=== PATIENT | female | born 1955 | race Caucasian/White ===

== ENCOUNTER 2017-10-17 02:01 | Inpatient (IN) | payer OTHER, MEDICARE ==
[~2017-10-17] VITALS: Ht 170.2 cm; Wt 58.1 kg
[~2017-10-17 02:01] MED LIST: CARI1TAB34; FOSA70TA PO; HYDR-3580 PO; LISI-360 PO; PRAV40TA2 PO
[2017-10-17 02:16] VITALS: BP 143/88; PULSE 88; RESP 20; TEMP 98; O2SAT 98
[2017-10-17] MEDS ORDERED: PRAV40TA2 PO (02:16)
[2017-10-17] MEDS ORDERED: LISI10TA3 PO (02:16)
[2017-10-17] MEDS ORDERED: HALOPERIDOL LACTATE 5 MG/ML AMP IM ONE (03:45)
[2017-10-17] MEDS ORDERED: LORazepam 2 MG/ML VIAL IV PUSH ONE (03:45)
--- NOTE | 2017-10-17 03:53 | PD ---
HPI Chief Complaint: Psychiatric Symptoms Time Seen by Provider: 03:23 Travel History International Travel<30 days: No Contact w/Intl Traveler<30days: No Traveled to known affect area: No History of Present Illness HPI 62-year-old white female presents to emergency department on a voluntary basis for psychological evaluation. The patient is acting very erratic. She is psychotic. She is asking the staff to euthanize her. She is becoming increasingly agitated in the examination room. She is throwing supplies off the cart onto the ground. She is attempting to pull the monitor off the wall. At this point the patient is restrained and she is medicated with Haldol 5 mg IV and 1 mg of Ativan IV. The patient is unable to give any meaningful history. [facility] Past Medical History Narrative Medical Medical record indicates hypertension and hypercholesterolemia High Cholesterol: Yes Hypertension: Yes Immunizations Current: Yes Tetanus Vaccination: Unknown Influenza Vaccination: No ?: Not Past Surgical History Narrative Surgical Lumbar laminectomy, Lumbar arthrodesis Social History Alcohol Use: No Tobacco Use: No Substance Use: No Allergies-Medications (Allergen,Severity, Reaction): Coded Allergies: No Known Allergies (Unverified Adverse Reaction, Unknown, 10/17/17) Reported Meds & Prescriptions Reported Meds & Active Scripts Active Reported Pravastatin 40 Mg Tab 40 Mg PO DAILY Lisinopril 10 Mg Tab 10 Mg PO DAILY Review of Systems ROS Limitations: Psychotic Physical Exam Narrative GENERAL: Well-nourished, well-developed patient. The patient is acutely psychotic. She is not making sense at this time. She is uncooperative. SKIN: Warm and dry. HEAD: Normocephalic and atraumatic. EYES: No scleral icterus. No injection or drainage. ENT: No nasal drainage noted. Mucous membranes pink. Airway patent. NECK: Supple, trachea midline. Moves head freely without obvious discomfort. CARDIOVASCULAR: Regular rate and rhythm without murmurs, gallops, or rubs. RESPIRATORY: Breath sounds equal bilaterally. No accessory muscle use. GASTROINTESTINAL: Abdomen soft, non-tender, nondistended. EXTREMITIES: No cyanosis or edema. BACK: Nontender without obvious deformity. No CVA tenderness. NEURO: Patient is alert to person. no sensorimotor deficits. Patient is moving all extremities in a coordinated fashion. PSYCH: Acutely psychotic Data Data Last Documented VS Vital Signs Date Time Temp Pulse Resp B/P (MAP) Pulse Ox O2 Delivery O2 Flow Rate FiO2 10/17/17 02:16 98.0 88 20 143/88 (106) 98 Orders Orders Complete Blood Count With Diff (10/17/17 03:32) Comprehensive Metabolic Panel (10/17/17 03:32) Iv Access Insert/Monitor (10/17/17 03:32) Psych Screen (10/17/17 03:32) Haloperidol Inj (Haldol Inj) (10/17/17 03:45) Lorazepam Inj (Ativan Inj) (10/17/17 03:45) Drug Screen, Random Urine (10/17/17 03:32) Alcohol (Ethanol) (10/17/17 03:32) MDM Medical Decision Making Medical Screen Exam Complete: Yes Emergency Medical Condition: Yes Medical Record Reviewed: Yes Differential Diagnosis MDM: High Differential diagnoses: Schizophrenia, schizoaffective disorder, bipolar, anxiety, depression, adjustment reaction, mood disorder NOS, ODD, depressive disorder NOS, dementia, dementia with agitation, psychosis NOS, substance induced mood disorder, DMDD, Asperger syndrome, infection,electrolyte abnormality, malingering. Narrative Course Mental health screening discussed with the patient. Psychiatric screen ordered. The patient is acutely psychotic. She has physically restrained in order to be medicated. She has become physically combative with staff. She has attempted to withdrawal securities baton from his duty belt. She has thrown the supplies off the supply cart. She is also attempted to pull the monitor off the wall. IV access is obtained. Laboratory tests have been drawn. She is given Haldol 5 mg IV and 1 mg of Ativan IV. Her IV is removed. The patient is medically cleared. This is medical clearance for psychiatric admission Diagnosis Primary Impression: Medical clearance for psychiatric admission Condition: Arron Patino Oct 17, 2017 03:53
[2017-10-17 03:56] VITALS: BP 116/66; PULSE 64; RESP 18; TEMP 97.3; O2SAT 99
[2017-10-17 03:58] LABS: AUTOMATED NEUTROPHIL # 5.2 TH/MM3 (1.8-7.7); BASOPHIL # 0.1 TH/MM3 (0-0.2); BASOPHIL % 0.7 % (0.0-2.0); EOSINOPHIL % 0.3 % (0.0-4.0); HEMATOCRIT 41.2 % (35.0-46.0); HEMO FLAGS DIFF FINAL; LYMPH % 21.1 % (9.0-44.0); LYMPHOCYTE # 1.6 TH/MM3 (1.0-4.8); MEAN CELL VOLUME 95.8 FL (80.0-100.0); MEAN CORPUSCULAR HEMOGLOBIN 34.1 PG (27.0-34.0); MEAN CORPUSCULAR HGB CONC 35.6 % (32.0-36.0); MONO % 11.4 % (0.0-8.0); NEUT % 66.5 % (16.0-70.0); PLATELET COUNT 241 TH/MM3 (150-450); WHITE BLOOD COUNT 7.8 TH/MM3 (4.0-11.0)
[2017-10-17 04:21] LABS: ALT (GPT) 18 U/L (10-53); ANION GAP 9 MEQ/L (5-15); AST (GOT) 33 U/L (15-37); BICARBONATE 25.2 MEQ/L (21.0-32.0); BLOOD UREA NITROGEN 5 MG/DL (7-18); CHLORIDE 94 MEQ/L (98-107); GLOMERULAR FILTRATION RATE 100 ML/MIN (>89); SODIUM (NA) 128 MEQ/L (136-145)
[2017-10-17 04:23] LABS: ALKALINE PHOSPHATASE 71 U/L (45-117); TOTAL BILIRUBIN ADULT 0.6 MG/DL (0.2-1.0)
[2017-10-17 04:35] LABS: ALCOHOL LESS THAN 3 MG/DL (0-5)
[2017-10-17 06:19] VITALS: BP 111/77; PULSE 104; RESP 18; O2SAT 98
[2017-10-17] MEDS ORDERED: POTASSIUM CHLORIDE 20 MEQ CONTROLLED RELEASE TAB PO ONE (09:00)
[2017-10-17 14:19] VITALS: BP 131/76; PULSE 84; RESP 18; TEMP 98.3; O2SAT 96
[2017-10-17] MEDS ORDERED: LORazepam 2 MG/ML VIAL IM PRN (17:00)
[2017-10-17] MEDS ORDERED: diphenhydrAMINE HCL 50 MG/ML VIAL IM PRN (17:00)
[2017-10-17] MEDS ORDERED: MAGNESIUM HYDROXIDE SUSP 30 ML CUP PO PRN (17:00)
[2017-10-17] MEDS ORDERED: ALUMINUM/MAGNESIUM/SIMETH 30 ML CUP PO PRN (17:00)
[2017-10-17] MEDS ORDERED: diphenhydrAMINE HCL 50 MG CAP PO PRN (17:00)
--- NOTE | 2017-10-17 17:03 | HHI.HP ---
Provisional Diagnosis Admission Date [place] I. Brief psychotic disorder Certification of Person's Competence To Provide Express and Informed Consent I have personally examined Alma Dominguez , a person being served at [facility] on, Oct 17, 2017 16:51. Express and informed consent means consent voluntarily given in writing, by a competent person, after sufficient explanation and disclosure of the subject matter involved to enable the person to make a knowing and willful decision without any element of force, fraud, deceit, duress, or other form of constraint or coercion. This person is 18 years of age or older, is not now known to be incompetent to consent to treatment with a guardian advocate, and does not have a health care surrogate or proxy currently making medical treatment decisions. I have found this person to be one of the following: [] Competent to provide express and informed consent, as defined above, for voluntary admission to this facility and is competent to provide express and informed consent for treatment. He/she has the consistent capacity to make well reasoned, willful, and knowing decisions concerning his or her medical or mental health treatment. The person fully and consistently understands the purpose of the admission for examination/placement and is fully capable of personally exercising all rights [place] [x] Incompetent to provide express and informed consent to voluntary admission, and this is incompetent to provide express and informed consent to treatment. The person must be transferred to involuntary status and a petition for a guardian advocate filed with the Circuit Court. [] Refusing to provide express and informed consent to voluntary admission but is competent to provide express and informed consent for treatment. The person must be discharged or transferred to involuntary status. Form shall be completed within 24 hours of a person's arrival at the receiving facility and filed in the clinical record of each person: 1. Admitted on a voluntary basis 2. Permitted to provide express and informed consent to his/her own treatment 3. Allowed to transfer from involuntary to voluntary status 4. Prior to permitting a person to consent to his or her own treatment after having been previously found incompetent to consent to treatment. History of Present Illness Capacity: Lacks Capacity HPI 62-year-old female that initially presented voluntarily to the emergency department for erratic behavior. Apparently she became very agitated, was throwing supplies in the examination room onto the ground. She attempted to pull a monitor off the wall. She required both physical and chemical restraint but fought with staff and in the process reportedly lost a tooth. She was noted to be grossly psychotic and unable to provide meaningful history. According to reports from the nurse, Joey, who spoke with the patient's , this is a recent drastic change in her behavior occurring over the last 5 days. In the main ED, she asked the hospital staff to euthanize her. As a result of her combativeness, she has required Haldol. She attempted to remove the security guards that time from his duty belt. This medicine has calmed the patient somewhat, in conjunction with Ativan. However, the patient remains grossly psychotic. She reportedly hallucinated in the emergency department that she had seen "the biggest truck I ever seen, they came with thousands of officers". She also thought she was being taken by the [facility] and that everyone was missing teeth and "all tattooed" she did not believe she was at [facility] and claimed that she could not trust anyone. She apparently told both the nurse Joey and this physician that Skye Tripathi was her daughter, given up many years ago. According to the patient's , Andrew Allred, , the patient has become increasingly bizarre, delusional, crying uncontrollably, talking to herself, etc. over the last 6 days. Law enforcement has been called to their home on multiple occasions. He does not know what is happening with his and he states she has no psychiatric treatment history. Review of Systems ROS Limitations: Clinical Condition Psychiatric: COMPLAINS OF: Confusion Except as stated in HPI: all other systems reviewed are Neg Past Psych History Psychological trauma history Denied Violence risk - others (6 mos) High Violence risk - self (6 mos) High Substance Abuse History Drugs/Alcohol past 12 months Toxicology screen is positive for cannabinoids. Patient has mentioned stimulants (Adderall) as something associated with her daughter. However, patient may have been given drugs in the marijuana or gotten into other drugs. Past Family Social History Coded Allergies: No Known Allergies (Unverified Adverse Reaction, Unknown, 10/17/17) Reported Medications Pravastatin (Pravastatin) 40 Mg Tab, 40 MG PO DAILY for Cholesterol Management, #30 TAB 0 Refills 10/17/17 Lisinopril (Lisinopril) 10 Mg Tab, 10 MG PO DAILY, #30 TAB 0 Refills 10/17/17 Discontinued Reported Medications Hydrocodone/Acetaminophen 7.5 mg/325 mg (Hydrocodone/Acetaminophen 7.5 mg/325 mg ) 7.5 Mg/325 Mg Tab, 1 TAB PO Q8 Y for PAIN SCALE 4 TO 7, TAB 03/18/14 Lisinopril 10 mg (Lisinopril 10 mg) 10 Mg Tab, 10 MG PO DAILY, TAB 03/18/14 Carisoprodol (Soma 350 Mg Tab) 350 Mg Tab, 350 MG .XX, TAB 03/18/14 Pravastatin Sodium (Pravastatin Sodium) 40 Mg Tab, 40 MG PO DAILY, TAB 03/18/14 Alendronate Sodium (Fosamax) 70 Mg Tab, 70 MG PO Q7D, TAB TAKE 30 MINUTES BEFORE THE MORNING MEAL, ONLY WATER 03/18/14 Current Medications Medications (Trade) Dose Ordered Sig/Roxanne Route Start Time Stop Time Status Last Admin (Ativan) 1 mg Q6H PRN PO 10/17/17 17:00 UNV (Ativan Inj) 1 mg Q6H PRN IM 10/17/17 17:00 UNV (Benadryl) 50 mg Q6H PRN PO 10/17/17 17:00 UNV (Benadryl Inj) 50 mg Q6H PRN IM 10/17/17 17:00 UNV (Tylenol) 650 mg Q4H PRN PO 10/17/17 17:00 UNV (Milk Of Magnesia Liq) 30 ml DAILY PRN PO 10/17/17 17:00 UNV (Mag-Al Plus Susp Liq) 30 ml Q6H PRN PO 10/17/17 17:00 UNV (Prinivil) 10 mg DAILY PO 10/17/17 17:00 UNV (Pravachol) 40 mg DAILY PO 10/18/17 09:00 UNV Family Psych History Unknown. Patient poor historian. Social History Patient is obviously . has been contacted and given information due to the emergency nature of the 's presentation. As stated, toxicology screen is positive for cannabinoids. Patient is not able to give any other cogent history at this time. Patient's Strengths (min. 2) Patient has supportive and access to healthcare. Physical Exam GENERAL: SKIN: Warm and dry. HEAD: Normocephalic. EYES: No scleral icterus. No injection or drainage. NECK: Supple, trachea midline. No JVD or lymphadenopathy. CARDIOVASCULAR: Regular rate and rhythm without murmurs, gallops, or rubs. RESPIRATORY: Breath sounds equal bilaterally. No accessory muscle use. GASTROINTESTINAL: Abdomen soft, non-tender, nondistended. MUSCULOSKELETAL: No cyanosis, or edema. BACK: Nontender without obvious deformity. No CVA tenderness. Vital Signs Vital Signs Date Time Temp Pulse Resp B/P (MAP) Pulse Ox O2 Delivery O2 Flow Rate FiO2 10/17/17 14:19 98.3 84 18 131/76 (94) 96 Room Air Lab Results Test 10/17/17 03:44 10/17/17 07:30 White Blood Count 7.8 TH/MM3 Red Blood Count 4.30 MIL/MM3 Hemoglobin 14.6 GM/DL Hematocrit 41.2 % Mean Corpuscular Volume 95.8 FL Mean Corpuscular Hemoglobin 34.1 PG Mean Corpuscular Hemoglobin Concent 35.6 % Red Cell Distribution Width 14.0 % Platelet Count 241 TH/MM3 Mean Platelet Volume 9.2 FL Neutrophils (%) (Auto) 66.5 % Lymphocytes (%) (Auto) 21.1 % Monocytes (%) (Auto) 11.4 % Eosinophils (%) (Auto) 0.3 % Basophils (%) (Auto) 0.7 % Neutrophils # (Auto) 5.2 TH/MM3 Lymphocytes # (Auto) 1.6 TH/MM3 Monocytes # (Auto) 0.9 TH/MM3 Eosinophils # (Auto) 0.0 TH/MM3 Basophils # (Auto) 0.1 TH/MM3 CBC Comment DIFF FINAL Differential Comment Blood Urea Nitrogen 5 MG/DL Creatinine 0.61 MG/DL Random Glucose 115 MG/DL Total Protein 8.2 GM/DL Albumin 4.5 GM/DL Calcium Level 9.2 MG/DL Alkaline Phosphatase 71 U/L Aspartate Amino Transf (AST/SGOT) 33 U/L Alanine Aminotransferase (ALT/SGPT) 18 U/L Total Bilirubin 0.6 MG/DL Sodium Level 128 MEQ/L Potassium Level 3.0 MEQ/L Chloride Level 94 MEQ/L Carbon Dioxide Level 25.2 MEQ/L Anion Gap 9 MEQ/L Estimat Glomerular Filtration Rate 100 ML/MIN Ethyl Alcohol Level LESS THAN 3 MG/DL Urine Opiates Screen NEG Urine Barbiturates Screen NEG Urine Amphetamines Screen NEG Urine Benzodiazepines Screen NEG Urine Cocaine Screen NEG Urine Cannabinoids Screen POS Mental Status Examination Appearance: Appropriate, Disheveled Consciousness: Alert Motor Activity: Normal gait Speech: Rapid Language: Perseveration Fund of Knowledge: Inadequate Attention and Concentration: Inadequate Memory: Impaired Mood: Anxious, Irritable Affect: Irritable, Labile Thought Process & Associations: Loose associations, Disorganized, Tangential Thought Content: Bizarre thinking, Hallucinations, Racing thoughts, Delusional Hallucination Type: Auditory, Visual Delusion Type: Bizarre, Paranoid Suicidal Ideation: Yes Suicidal Plan: No Suicidal Intention: No Homicidal Ideation: No Homicidal Plan: No Homicidal Intention: No Insight: Poor Judgment: Poor Assessment & Plan Problem List: (1) Brief psychotic disorder ICD Codes: F23 - Brief psychotic disorder Assessment & Plan Estimated LOS: days. 62-year-old female with no psychiatric history, Reese acted by this physician for inability to care for herself, suicidal ideation, physically combative behavior with staff, markedly psychotic with impaired judgment and poor insight. She is obviously unable to care for herself, dangerous to herself and others and requires hospitalization. This physician has ordered a CBC and comprehensive metabolic panel to determine if any infectious process or metabolic process might be causing or contributing to her psychosis and confusion. Additionally, this physician ordered thyroid stimulating hormone level, vitamin B-12 level and vitamin D level to determine if any deficiencies in these areas is causing or contributing to her psychosis. Patient takes an antihypertensive medication and hepatitis was consult did to evaluate the patient for any organic process which might be causing or contributing to this new onset psychosis and confusion. This physician also ordered an EKG to determine the patient's cardiac conduction status, as psychotropic medicines might adversely affect the electrical system of her heart. This physician spoke with the patient's nurse, Joey, about her recent behavior. Joey also spoke with the patient's regarding her recent history. Finally, case management will be involved to assist with further information gathering and disposition planning. Patient is not felt to be competent to make medical decisions. Aly Peng MD Oct 17, 2017 17:03
[2017-10-17] MEDS: LISINOPRIL 10 MG TAB PO SCH (17:30)
[2017-10-17 19:51] VITALS: BP 133/74; PULSE 66; TEMP 98.1; O2SAT 97
[2017-10-17] MEDS: ACETAMINOPHEN 325 MG TAB PO PRN (20:11)
[2017-10-18] MEDS: ACETAMINOPHEN 325 MG TAB PO PRN (05:27)
[2017-10-18 06:04] VITALS: BP 126/59; PULSE 82; RESP 16; TEMP 98.4; O2SAT 99
[2017-10-18] MEDS: PRAVASTATIN SOD 40 MG TAB PO SCH (08:27)
[2017-10-18] MEDS: LISINOPRIL 10 MG TAB PO SCH (08:28)
[2017-10-18 12:04] LABS: AUTOMATED NEUTROPHIL # 3.4 TH/MM3 (1.8-7.7); BASOPHIL % 0.5 % (0.0-2.0); EOSINOPHIL % 0.5 % (0.0-4.0); HEMATOCRIT 38.3 % (35.0-46.0); HEMO FLAGS DIFF FINAL; LYMPH % 27.8 % (9.0-44.0); LYMPHOCYTE # 1.6 TH/MM3 (1.0-4.8); MEAN CELL VOLUME 96.3 FL (80.0-100.0); MEAN CORPUSCULAR HEMOGLOBIN 32.5 PG (27.0-34.0); MEAN CORPUSCULAR HGB CONC 33.7 % (32.0-36.0); MONO % 14.7 % (0.0-8.0); NEUT % 56.5 % (16.0-70.0); PLATELET COUNT 204 TH/MM3 (150-450); RED BLOOD COUNT 3.98 MIL/MM3 (4.00-5.30); RED CELL DISTRIBUTION WIDTH 13.8 % (11.6-17.2); WHITE BLOOD COUNT 5.9 TH/MM3 (4.0-11.0)
[2017-10-18 12:30] LABS: HEMOGLOBIN A1a 1.4 %; HEMOGLOBIN A1b 0.8 %; HEMOGLOBIN Ao 84.8 %; HEMOGLOBIN F 1.3 %; HEMOGLOBIN LA1C 2.2 %; HEMOGLOBIN P3 3.5 %
[2017-10-18 12:43] LABS: ANION GAP 10 MEQ/L (5-15); AST (GOT) 24 U/L (15-37); BICARBONATE 27.4 MEQ/L (21.0-32.0); BLOOD UREA NITROGEN 4 MG/DL (7-18); CHLORIDE 95 MEQ/L (98-107); GLOMERULAR FILTRATION RATE 93 ML/MIN (>89); POTASSIUM 3.7 MEQ/L (3.5-5.1); SODIUM (NA) 132 MEQ/L (136-145)
[2017-10-18 13:01] LABS: ALKALINE PHOSPHATASE 56 U/L (45-117); ALT (GPT) 15 U/L (10-53); HDL CHOLESTEROL 68.1 MG/DL (40.0-60.0); LDL CHOLESTEROL 27 MG/DL (0-99); TOTAL BILIRUBIN ADULT 0.5 MG/DL (0.2-1.0)
--- NOTE | 2017-10-18 14:00 | PD.CONS ---
HPI Service [facility] Consult Requested By Primary Care Physician Unknown Diagnoses: History of Present Illness history from patient, ER physician notes, and review of medical records. Patient is an extremely pleasant lady at the time of my exam. She is admitted and her psychiatry service. According to psychiatry: Patient was extremely agitated, throwing supplies to the ground, pulling off monitors from the wall, and required physical and chemical restraints. she asked the hospital staff to euthanize her. She was having active hallucinations thinking that [employer] was after her. Patient's also reported to psychiatry staff stat patient was becoming increasingly this year, delusional, and crying uncontrollably, talking to herself over the past 6 days. Patient herself just told me that she was very worried for her sister and her daughter who both had history of IV drug abuse and she was worried that the may end up like her neighbor who just from drug overdose. She stated she started worrying about them when she has not heard from them for a while. She thinks that high brief psychotic episode is because of this. She also told me that her doctor Dr. Landeros had recently started her on baclofen and citalopram. She stated baclofen gave her so much side effects which she described as nausea, vomiting, and blood in stool. She reports it was bright red blood. She stated it started about 4 days ago and it is slowly resolving since she stopped baclofen. She also thinks that citalopram is causing her trouble. Apart from right red blood in her stool, she denies any symptoms. She reports that she has had occult blood tests done for her stool with her PCP about 2 weeks ago and that was normal. She never had colonoscopies. Review of Systems Except as stated in HPI: all other systems reviewed are Neg Past Family Social History Allergies: Coded Allergies: No Known Allergies (Unverified Allergy, Unknown, 10/17/17) Past Medical History Denies any medical conditions apart from: Chronic back pain Osteoporosis on Fosamax Per her medications on computer: Hypertension Hyperlipidemia Past Surgical History Tubal ligation Multiple back surgeries Bilateral wrist surgeries Reported Medications Medications listed on EMR reviewed. Family History Denies any medical conditions that she knows of Social History Currently smokes about half a pack a day. Denies any alcohol abuse or drug abuse. Physical Exam Vital Signs Vital Signs Date Time Temp Pulse Resp B/P (MAP) Pulse Ox O2 Delivery O2 Flow Rate FiO2 10/18/17 06:04 98.4 82 16 126/59 (81) 99 10/17/17 19:51 98.1 66 133/74 (93) 97 10/17/17 19:26 10/17/17 14:19 98.3 84 18 131/76 (94) 96 Room Air Physical Exam GENERAL: This is a well-nourished, well-developed patient, in no apparent distress. SKIN: No rashes, ecchymoses or lesions. Cool and dry.left wrist area romelia ; left antecubital area large echymosis from struggle with police ([facility] police or city police?) HEAD: Atraumatic. Normocephalic. No temporal or scalp tenderness. EYES: No scleral icterus. No injection or drainage. ENT: Nose without bleeding, purulent drainage or septal hematoma. . Airway patent. NECK: Trachea midline. No JVD . Supple, nontender, no meningeal signs. CARDIOVASCULAR: Regular rate and rhythm without murmurs, gallops, or rubs. RESPIRATORY: Clear to auscultation. Breath sounds equal bilaterally. No wheezes , rales, or rhonchi. GASTROINTESTINAL: Abdomen soft, non-tender, nondistended. . No guarding. MUSCULOSKELETAL: Extremities without clubbing, cyanosis, or edema. No calf tenderness. NEUROLOGICAL: Awake and alert. Motor and sensory grossly within normal limits. normal speech. Laboratory Laboratory Tests Test 10/18/17 11:05 White Blood Count 5.9 Red Blood Count 3.98 Hemoglobin 12.9 Hematocrit 38.3 Mean Corpuscular Volume 96.3 Mean Corpuscular Hemoglobin 32.5 Mean Corpuscular Hemoglobin Concent 33.7 Red Cell Distribution Width 13.8 Platelet Count 204 Mean Platelet Volume 9.0 Neutrophils (%) (Auto) 56.5 Lymphocytes (%) (Auto) 27.8 Monocytes (%) (Auto) 14.7 Eosinophils (%) (Auto) 0.5 Basophils (%) (Auto) 0.5 Neutrophils # (Auto) 3.4 Lymphocytes # (Auto) 1.6 Monocytes # (Auto) 0.9 Eosinophils # (Auto) 0.0 Basophils # (Auto) 0.0 CBC Comment DIFF FINAL Differential Comment Blood Urea Nitrogen 4 Creatinine 0.65 Random Glucose 81 Total Protein 6.7 Albumin 3.6 Calcium Level 8.6 Alkaline Phosphatase 56 Aspartate Amino Transf (AST/SGOT) 24 Alanine Aminotransferase (ALT/SGPT) 15 Total Bilirubin 0.5 Sodium Level 132 Potassium Level 3.7 Chloride Level 95 Carbon Dioxide Level 27.4 Anion Gap 10 Estimat Glomerular Filtration Rate 93 Hemoglobin A1c 5.5 Triglycerides Level 91 Cholesterol Level 113 LDL Cholesterol 27 HDL Cholesterol 68.1 Cholesterol/HDL Ratio 1.65 Vitamin B12 Level 253 25-Hydroxy Vitamin D Total 40.8 Thyroid Stimulating Hormone 3rd Gen 2.840 Result Diagram: 10/18/17 1105 10/18/17 1105 Assessment and Plan Assessment and Plan Impression/ Plan: Brief psychotic disorder. Likely related to marijuana which might have been tainted. However question underlying psychiatric disorder since patient reported her PCP had recently started her on citalopram within the past 1 or 2 weeks. Bright red blood per rectum. No prior history of hemorrhoids. Will send stool for occult blood. We'll monitor hemoglobin and hematocrit serially closely. Patient does not want colonoscopy since she stated her occult blood testing as an outpatient about 2 weeks ago was normal. We will follow her clinically and see if she needs inpatient evaluation. If not and stable, she can be referred as an outpatient to have colonoscopy. She is agreeable to this. Osteoporosis Hypertension Hyperlipidemia Nursing orders written to call patient's pharmacy at [phone]. To verify her home meds and update EMR. Patient will need her Fosamax tomorrow. DVT prophylaxis with ambulation. Discussed Condition With patient Hyun Hardy MD Oct 18, 2017 14:00
--- NOTE | 2017-10-18 15:33 | HHI.PYPN ---
Subjective Remarks Patient initially seen by Dr. Aly Peng who did the initial psychiatric evaluation. I have finished the admission psychiatric template. Patient seen by me with nurse cammy, patient alert oriented somewhat intense with mildly pressured speech with intense eye contact. She denies suicidality homicidality voices or visions. She states she's only had one psychiatric contact in that some number of years ago which had some significant medical issues. She acknowledges but minimizes her marijuana use and gets less than once a week and she states she no she has a "28 day" cycle. She states she is had some significant issues with close friend of hers who of been problematic with drug use. The stress of the who is newly diagnosed with Parkinson's. Patient also minimizes her behaviors in the emergency department that necessitated BTO of IV Haldol and Ativan. However at this time patient appears to be somewhat calmer and focused. Though I do feel any further observation to determine the consistency of this recovery. I did ask patient to see if her , and visit with us tomorrow morning. With the possibility of the discharge at that time will refrain from any psychotropics illness or behaviors demands Dr. Lugo first opinion petition supporting [place] act. I agree. Patient meets criteria for further involuntary psychiatric hospitalization under the [place] act thus I'll cosign second opinion petition supporting [place] act Review of Systems Constitutional: DENIES: Diaphoretic episodes, Fatigue, Fever, Weight gain, Weight loss, Chills, Dizziness, Change in appetite, Night Sweats Endocrine: DENIES: Abnorml menstrual pattern, Heat/cold intolerance, Polydipsia , Polyuria, Polyphagia Eyes: DENIES: Blurred vision, Diplopia, Eye inflammation, Eye pain, Vision loss , Photosensitivity, Double Vision Ears, nose, mouth, throat: DENIES: Tinnitus, Hearing loss, Vertigo, Nasal discharge, Oral lesions, Throat pain, Hoarseness, Ear Pain, Running Nose, Epistaxis, Sinus Pain, Toothache, Odynophagia Respiratory: DENIES: Apneas, Cough, Snoring, Wheezing, Hemoptysis, Sputum production, Shortness of breath Cardiovascular: DENIES: Chest pain, Palpitations, Syncope, Dyspnea on Exertion , PND, Lower Extremity Edema, Orthopnea, Claudication Gastrointestinal: DENIES: Abdominal pain, Black stools, Bloody stools, Constipation, Diarrhea, Nausea, Vomiting, Difficulty Swallowing, Anorexia Genitourinary: DENIES: Abnormal vaginal bleeding, Dysmenorrhea, Dyspareunia, Sexual dysfunction, Urinary frequency, Urinary incontinence, Urgency, Hematuria , Dysuria, Nocturia, Vaginal discharge Musculoskeletal: DENIES: Joint pain, Muscle aches, Stiffness, Joint Swelling, Back pain, Neck pain Integumentary: DENIES: Abnormal pigmentation, Pruritus, Rash, Nail changes, Breast masses, Breast skin changes, Nipple discharge Hematologic/lymphatic: DENIES: Bruising, Lymphadenopathy Immunologic/allergic: DENIES: Eczema, Urticaria Neurologic: DENIES: Abnormal gait, Headache, Localized weakness, Paresthesias, Seizures, Speech Problems, Tremor, Poor Balance Psychiatric: COMPLAINS OF: Anxiety (mild), Agitation, Suicidal Ideation (denies ) Mental Status Examination Appearance: Appropriate, Disheveled Consciousness: Alert Orientation: x4 Motor Activity: Normal gait Speech: Rapid Language: Perseveration (mild) Fund of Knowledge: Adequate Attention and Concentration: Inadequate Memory: Impaired Mood: Anxious, Irritable (appears to be decreasing from yesterday) Affect: Other (slight increase range and intensity) Thought Process & Associations: Loose associations (improving), Disorganized, Tangential Thought Content: Bizarre thinking, Hallucinations (denies today), Racing thoughts, Delusional Hallucination Type: Auditory (denies today), Visual (denies today) Delusion Type: Bizarre, Paranoid Suicidal Ideation: Yes (denies today) Suicidal Plan: No Suicidal Intention: No Homicidal Ideation: No Homicidal Plan: No Homicidal Intention: No Insight: Poor Judgment: Poor Results Labs Test 10/18/17 11:05 White Blood Count 5.9 TH/MM3 Red Blood Count 3.98 MIL/MM3 Hemoglobin 12.9 GM/DL Hematocrit 38.3 % Mean Corpuscular Volume 96.3 FL Mean Corpuscular Hemoglobin 32.5 PG Mean Corpuscular Hemoglobin Concent 33.7 % Red Cell Distribution Width 13.8 % Platelet Count 204 TH/MM3 Mean Platelet Volume 9.0 FL Neutrophils (%) (Auto) 56.5 % Lymphocytes (%) (Auto) 27.8 % Monocytes (%) (Auto) 14.7 % Eosinophils (%) (Auto) 0.5 % Basophils (%) (Auto) 0.5 % Neutrophils # (Auto) 3.4 TH/MM3 Lymphocytes # (Auto) 1.6 TH/MM3 Monocytes # (Auto) 0.9 TH/MM3 Eosinophils # (Auto) 0.0 TH/MM3 Basophils # (Auto) 0.0 TH/MM3 CBC Comment DIFF FINAL Differential Comment Blood Urea Nitrogen 4 MG/DL Creatinine 0.65 MG/DL Random Glucose 81 MG/DL Total Protein 6.7 GM/DL Albumin 3.6 GM/DL Calcium Level 8.6 MG/DL Alkaline Phosphatase 56 U/L Aspartate Amino Transf (AST/SGOT) 24 U/L Alanine Aminotransferase (ALT/SGPT) 15 U/L Total Bilirubin 0.5 MG/DL Sodium Level 132 MEQ/L Potassium Level 3.7 MEQ/L Chloride Level 95 MEQ/L Carbon Dioxide Level 27.4 MEQ/L Anion Gap 10 MEQ/L Estimat Glomerular Filtration Rate 93 ML/MIN Hemoglobin A1c 5.5 % Triglycerides Level 91 MG/DL Cholesterol Level 113 MG/DL LDL Cholesterol 27 MG/DL HDL Cholesterol 68.1 MG/DL Cholesterol/HDL Ratio 1.65 RATIO Vitamin B12 Level 253 PG/ML 25-Hydroxy Vitamin D Total 40.8 ng/ML Thyroid Stimulating Hormone 3rd Gen 2.840 uIU/ML Vitals/IOs Vital Signs Date Time Temp Pulse Resp B/P (MAP) Pulse Ox O2 Delivery O2 Flow Rate FiO2 10/18/17 06:04 98.4 82 16 126/59 (81) 99 10/17/17 14:19 Room Air Assessment & Plan Problem List: (1) Brief psychotic disorder ICD Codes: F23 - Brief psychotic disorder Assessment & Plan Estimated LOS: days it appears patient psychosis is somewhat resolving. Need further observation to confirm its consistency. We will also ask her to meet with us tomorrow for a family meeting to consider possible discharge her for the holidays. At this time will refrain from any psychotropics unless her behavior demands Justification for Cont. Inpt. Persistent resolution of her psychosis willingness of her family to have her come home Discharge Planning To be determined Request HC Surrog/Guard Advoc?: No Misha Bledsoe MD Oct 18, 2017 15:33
[2017-10-18 18:30] LABS: HEMATOCRIT 36.8 % (35.0-46.0); REVIEW FLAG FINAL
[2017-10-18 18:52] VITALS: BP 122/70; PULSE 74; RESP 17; TEMP 97.5; O2SAT 99
[2017-10-18] MEDS: LORazepam 1 MG TAB PO PRN (23:01)
[2017-10-19 05:37] LABS: HEMATOCRIT 38.4 % (35.0-46.0); REVIEW FLAG FINAL
[2017-10-19 06:04] VITALS: BP 143/75; PULSE 66; RESP 16; TEMP 98.1; O2SAT 100
[2017-10-19] MEDS: ACETAMINOPHEN 325 MG TAB PO PRN (06:16)
[2017-10-19] MEDS: LORazepam 1 MG TAB PO PRN (06:16)
[2017-10-19] MEDS: PRAVASTATIN SOD 40 MG TAB PO SCH (08:05)
[2017-10-19] MEDS: LISINOPRIL 10 MG TAB PO SCH (08:06)
[2017-10-19] MEDS ORDERED: PRAV40TA2 PO ×2 (13:26→14:16)
[2017-10-19] MEDS ORDERED: SOMA350T PO (13:26)
[2017-10-19] MEDS ORDERED: HYDR-3583 PO (13:26)
[2017-10-19] MEDS ORDERED: BACL10TA PO (13:26)
[2017-10-19] MEDS ORDERED: LEXA10TA PO ×2 (13:26→14:16)
[2017-10-19] MEDS ORDERED: LISI10TA3 PO ×2 (13:26→14:16)
[2017-10-19] MEDS ORDERED: FOSA70TA PO (13:26)
--- NOTE | 2017-10-19 13:30 | EKG ---
Date Performed: 10/18/2017 Time Performed: 13:31:30 PTAGE: 62 years EKG: Sinus rhythm WITH OCCASIONAL VENTRICULAR PREMATURE COMPLEXES WITH OCCASIONAL SUPRAVENTRICULAR PREMATURE COMPLEXES BORDERLINE ECG NO PREVIOUS TRACING DOCTOR: Hansel Olvera Interpretating Date/Time 10/19/2017 13:30:02
--- NOTE | 2017-10-19 13:37 | HHI.PR ---
Subjective Remarks Follow up visit on 62-year-old female with PMH of chronic back pain, osteoporosis on Fosamax, HNT, and HLD. Patient repots pain and states that her home medications for pain have not been restarted. She is also worried because she is trying to get her to come and pick her up but every time that her comes her they send him away. At the moment she denies any nausea, vomiting, bloody or black stools, denies lightheadedness, chest pain or SOB. She denies fever or chills, she tells me she just wants to go home. Objective Vitals Vital Signs Date Time Temp Pulse Resp B/P (MAP) Pulse Ox O2 Delivery O2 Flow Rate FiO2 10/19/17 06:04 98.1 66 16 143/75 (97) 100 10/18/17 18:52 97.5 74 17 122/70 (87) 99 I/O 10/18/17 10/18/17 10/18/17 10/19/17 10/19/17 10/19/17 07:00 15:00 23:00 07:00 15:00 23:00 Intake Total 240 ml Balance 240 ml Intake Oral 240 ml Result Diagram: 10/19/17 0531 10/18/17 1105 Objective Remarks GENERAL: This is a well-nourished, well-developed patient. SKIN: No rashes, ecchymoses or lesions. Cool and dry. Left wrist area romelia. Left antecubital area large ecchymosis. HEAD: Atraumatic. Normocephalic. EYES: No scleral icterus. No injection or drainage. ENT: Nose without bleeding, purulent drainage or septal hematoma. . Airway patent. NECK: Trachea midline. No JVD . CARDIOVASCULAR: Regular rate and rhythm without murmurs, gallops, or rubs. RESPIRATORY: Clear to auscultation. Breath sounds equal bilaterally. No wheezes , rales, or rhonchi. GASTROINTESTINAL: Abdomen soft, non-tender, nondistended. . No guarding. MUSCULOSKELETAL: Extremities without clubbing, cyanosis, or edema. NEUROLOGICAL: Awake and alert. Motor and sensory grossly within normal limits. normal speech. A/P Assessment and Plan Brief psychotic disorder. Likely related to marijuana which might have been tainted. However question underlying psychiatric disorder since patient reported her PCP had recently started her on citalopram within the past 1 or 2 weeks. Bloody stools - No more reports of bloody stools or black stools, no issues eating or drinking. - Serial H&H stable - Asymptomatic, VSS - If further bleeding develops will recheck H&H Osteoporosis Chronic pain - Spoke with nurse who will call patient's pharmacy to verify medications - Will resume once verified VTE - Patient ambulating Patient will be discharged today by psych. services. Carlota Werner Oct 19, 2017 13:37
--- NOTE | 2017-10-19 14:25 | HHI.DS ---
Psychiatry Discharge Summary Inpatient Psychiatric care?: Yes Advance Directive: No Reason Not Provided: Due to Patient Condition Mental Health AdvanceDirective: No Health Care Proxy: No Admission Admission Date Oct 17, 2017 at 16:46 Admission Diagnosis: (1) Brief psychotic disorder ICD Code: F23 - Brief psychotic disorder Brief History 62-year-old female that initially presented voluntarily to the emergency department for erratic behavior. Apparently she became very agitated, was throwing supplies in the examination room onto the ground. She attempted to pull a monitor off the wall. She required both physical and chemical restraint but fought with staff and in the process reportedly lost a tooth. She was noted to be grossly psychotic and unable to provide meaningful history. According to reports from the nurse, Joey, who spoke with the patient's , this is a recent drastic change in her behavior occurring over the last 5 days. In the main ED, she asked the hospital staff to euthanize her. As a result of her combativeness, she has required Haldol. She attempted to remove the security guards that time from his duty belt. This medicine has calmed the patient somewhat, in conjunction with Ativan. However, the patient remains grossly psychotic. She reportedly hallucinated in the emergency department that she had seen "the biggest truck I ever seen, they came with thousands of officers". She also thought she was being taken by the [facility] and that everyone was missing teeth and "all tattooed" she did not believe she was at [facility] and claimed that she could not trust anyone. She apparently told both the nurse Joey and this physician that Skye Tripathi was her daughter, given up many years ago. According to the patient's , Andrew Allred, , the patient has become increasingly bizarre, delusional, crying uncontrollably, talking to herself, etc. over the last 6 days. Law enforcement has been called to their home on multiple occasions. He does not know what is happening with his and he states she has no psychiatric treatment history. Tobacco Use In Past 30 Days: No Tobacco Past 30 Days Alcohol Use: Never Hospital Course Patient's hospital course was uneventful, she should compliance with medication compliance with the milieu. Psychotic features paranoia resolved. She now denies suicidality homicidality voices or visions. Appears was a mixup with her this morning we are unable to meet with him. Patient states her feels she is ready to return home patient also feels safe with returning home. She does have counseling available we'll referred to [facility] health services. Thus patient will be discharged today to herself Rx 1 month follow-up with her PCP and was her [facility] mental health follow-up Results Blood Pressure 143 / 75 Vital Signs Date Time Temp Pulse Resp B/P (MAP) Pulse Ox O2 Delivery O2 Flow Rate FiO2 10/19/17 06:04 98.1 66 16 143/75 (97) 100 10/17/17 14:19 Room Air Laboratory Tests Test 10/17/17 03:44 10/17/17 07:30 10/18/17 11:05 10/18/17 18:18 Mean Corpuscular Hemoglobin 34.1 PG (27.0-34.0) Monocytes (%) (Auto) 11.4 % (0.0-8.0) 14.7 % (0.0-8.0) Blood Urea Nitrogen 5 MG/DL (7-18) 4 MG/DL (7-18) Random Glucose 115 MG/DL (74-106) Sodium Level 128 MEQ/L (136-145) 132 MEQ/L (136-145) Potassium Level 3.0 MEQ/L (3.5-5.1) Chloride Level 94 MEQ/L (98-107) 95 MEQ/L (98-107) Urine Cannabinoids Screen POS (NEG) Red Blood Count 3.98 MIL/MM3 (4.00-5.30) Cholesterol Level 113 MG/DL (120-200) HDL Cholesterol 68.1 MG/DL (40.0-60.0) Test 10/19/17 05:31 Laboratory Results Test 10/18/17 11:05 Cholesterol Level 113 MG/DL (120-200) HDL Cholesterol 68.1 MG/DL (40.0-60.0) Hemoglobin A1c 5.5 % (4.3-6.0) LDL Cholesterol 27 MG/DL (0-99) Triglycerides Level 91 MG/DL (42-150) Summary of Procedures None done Pending results at discharge: No Medications # of Antipsychotic meds at D/C: 0 Approp Antipsych med options 1 - Minimum of three failed multiple trials of monotherapy. 2 - Documented plan to taper to monotherapy due to previous use of multiple meds OR cross-taper in progress at D/C. 3 - Documentation of augmentation of Clozapine. 4 - Justification other than those listed in allowable values 1-3, document here : Discharge Discharge Date: Oct 19, 2017 Discharge Diagnosis: (1) Brief psychotic disorder Diagnosis: Principal ICD Code: F23 - Brief psychotic disorder Pt Condition on Discharge: Stable Discharge Disposition: Discharge Home Discharge Instructions Diet Instructions: As Tolerated, No Restrictions Activities you can perform: Regular-No Restrictions Scheduled Appointment: Edi Sesay Discharge Time > 30 minutes Mental Status Examination Appearance: Appropriate, Disheveled Consciousness: Alert Orientation: x4 Motor Activity: Normal gait Speech: Rapid Language: Perseveration (mild) Fund of Knowledge: Adequate Attention and Concentration: Inadequate Memory: Impaired Mood: Anxious, Irritable (appears to be decreasing from yesterday) Affect: Other (slight increase range and intensity) Thought Process & Associations: Loose associations (improving), Disorganized, Tangential Thought Content: Bizarre thinking, Hallucinations (denies today), Racing thoughts, Delusional Hallucination Type: Auditory (denies today), Visual (denies today) Delusion Type: Bizarre, Paranoid Suicidal Ideation: Yes (denies today) Suicidal Plan: No Suicidal Intention: No Homicidal Ideation: No Homicidal Plan: No Homicidal Intention: No Insight: Poor Judgment: Poor Discharge/Advance Care Plan Health Problems: (1) Brief psychotic disorder Goals to promote your health * To prevent worsening of your condition and complications * To maintain your health at the optimal level Directions to meet your goals Take your medications as prescribed Follow your dietary instruction Follow activity as directed Keep your appointments as scheduled Take your immunizations and boosters as scheduled If your symptoms worsen call your PCP, if no PCP go to Urgent Care Center or Emergency Room For 24/ questions related to your inpatient stay or results of tests pending at discharge, please contact Dr. Misha Bledsoe at Smoking is Dangerous to Your Health. Avoid second hand smoking Misha Bledsoe MD Oct 19, 2017 14:25
== END 2017-10-19 17:40 | disposition home or self-care (01) | DRG 885 ==
LOC: NEPD 02:01 → NEDA 16:46 → H270 19:45 → H260 23:55
PROVIDERS: ADMIT Psychiatry & Neurology Psychiatry; ATTEND Psychiatry & Neurology Psychiatry
DX: F23 Brief psychotic disorder (principal); Z78.1 Physical restraint status; I10 Essential (primary) hypertension; K92.1 Melena; G89.29 Other chronic pain; M54.9 Dorsalgia, unspecified; M81.0 Age-related osteoporosis without current pathological fracture; E78.5 Hyperlipidemia, unspecified; F17.210 Nicotine dependence, cigarettes, uncomplicated; F12.90 Cannabis use, unspecified, uncomplicated
CPT/HCPCS: 80053; 80061; 80307; 82306; 82607; 83036; 84443; 85014; 85018; 85025; 86850; 86900; 86901; 93005; 96372; 96374; J1630; J2060; Q0163